=== PATIENT | female | born 1980 | race Caucasian/White ===

== ENCOUNTER 2016-08-12 12:36 | Emergency (ER) | payer SELFPAY ==
[2016-08-12 12:45] VITALS: BP 118/75; PULSE 92; RESP 16; TEMP 99; O2SAT 96
--- NOTE | 2016-08-12 13:01 | EDPHY ---
H & P Time Seen by Provider: 08/12/16 12:57 HPI/ROS: Mental health issues. Asking for medication prescription refills. 36-year-old female on foot. This patient recently moved from [place]. She has a history of paranoid schizophrenia, bipolar, anxiety and attention deficit hyperactivity disorder. She reports that she is prescribed trazodone in an unknown dosage, and hydralazine, which she describes as a blue and white capsule for psychiatric medications. She reports that she has 1-2 days of medications left but needs refills on her prescriptions. She denies any other complaints. She reports that she is here to go to [employer] school. However, she told the nursing staff that she was here for a job interview. She denies being significantly depressed. No homicidal or suicidal ideations. ROS: Constitutional: No fever, no chills. No weakness. Eyes: No discharge. No changes in vision. ENT: No sore throat. No nasal congestion or rhinorrhea. Respiratory: No cough. No shortness of breath. Cardiac: No chest pain, no palpitations. Gastrointestinal: No abdominal pain, no vomiting, no diarrhea. Genitourinary: No hematuria. No dysuria or increased frequency with urination. Musculoskeletal: No back pain. No neck pain. No myalgias or arthralgias. Skin: No rashes. Neurological: No headache. No focal weakness or altered sensation. Past medical history: Paranoid schizophrenia, anxiety, bipolar, attention deficit hyperactivity disorder. Social history: Every day smoker. Denies alcohol. Physical Exam: General Appearance: Alert, happy, animated. This patient is responding to questions appropriately and in full sentences. This patient appears well- hydrated and well-nourished. Eyes: Pupils equal and round no pallor or injection. No lid edema, erythema or injection. Neurological: Motor sensory function is grossly intact. Cranial nerves are normal. Gait is normal. Skin: Warm and dry, no rashes. Musculoskeletal: Neck is supple and nontender. Extremities are symmetrical. All joints range without pain or impingement. Psychiatric: No agitation. No depression. Database: EKG: Imaging: Procedures: Emergency department course: After my evaluation, I agreed to provide her with a limited prescription refill of her psychiatric meds which will include trazodone, Geodon and hydroxyzine. We will have [facility] briefly consult with her and arrange for follow-up in their clinic this week. She is in agreement with this plan. [facility] has seen the patient. They arranged for follow-up in clinic this week. They will take over her psychiatric prescription medication refills and ongoing management of her psychiatric issues. The patient feels comfortable being discharged. She understands her follow-up. Return to emergency department precautions discussed. All of her questions were answered. She was discharged in good condition. Differential Diagnosis: The differential diagnosis on this patient includes but is not limited to out of psychiatric medications, history of paranoid schizophrenia, anxiety, bipolar , attention deficit hyperactivity disorder. This represents a partial list of diagnoses considered. These considerations are based on history, physical exam , past history, reassessment and diagnostic testing. Smoking Status: Current every day smoker Constitutional: Initial Vital Signs Temperature (C) 37.2 C 08/12/16 12:41 Heart Rate 92 08/12/16 12:41 Respiratory Rate 16 08/12/16 12:41 Blood Pressure 118/75 08/12/16 12:41 O2 Sat (%) 96 08/12/16 12:41 O2 Delivery Mode Room Air Allergies/Adverse Reactions: No Known Allergies Allergy (Unverified 08/12/16 12:45) Home Medications: Medication Instructions Recorded Blue And White Capsule 08/12/16 Hydroxyzine HCl 08/12/16 Ziprasidone HCl [Geodon] 80 mg PO BID #20 capsule 08/12/16 hydrOXYzine HCL [hydrOXYzine HCL 25 mg PO Q8 PRN #20 tab 08/12/16 (RX)] traZODone 08/12/16 traZODone [traZODONE 50MG (*)] 50 mg PO TID #20 tab 08/12/16 Medical Decision Making - Data Points Laboratory Results: 08/12/16 13:00 WBC Pending RBC Pending Hgb Pending Hct Pending MCV Pending MCH Pending MCHC Pending RDW Pending Plt Count Pending MPV Pending Neut % (Auto) Pending Lymph % (Auto) Pending [place] % (Auto) Pending Eos % (Auto) Pending Baso % (Auto) Pending Nucleat RBC Rel Count Pending Absolute Neuts (auto) Pending Absolute Lymphs (auto) Pending Absolute Monos (auto) Pending Absolute Eos (auto) Pending Absolute Basos (auto) Pending Absolute Nucleated RBC Pending Immature Gran % Pending Immature Gran # Pending Sodium Pending Potassium Pending Chloride Pending Carbon Dioxide Pending Anion Gap Pending BUN Pending Creatinine Pending Estimated GFR Pending Glucose Pending Calcium Pending Ethyl Alcohol Pending Departure - Departure Disposition: Home, Routine, Self-Care Clinical Impression: PRESCRIPTION MEDICATION REFILL, History of schizophrenia Condition: Good Instructions: Schizophrenia (ED) Additional Instructions: Read and follow provided instructions. Follow-up with [facility] in clinic as discussed for continued and ongoing psychiatric management as well as refill of your prescription medications. Take medication as prescribed only. Return to the emergency department for worsening symptoms or other serious concerns. Referrals: [facility] [Outside] - As per Instructions Prescriptions: Ziprasidone HCl [Geodon] 80 mg PO BID #20 capsule hydrOXYzine HCL [hydrOXYzine HCL (RX)] 25 mg PO Q8 PRN #20 tab PRN Reason: Anxiety traZODone [traZODONE 50MG (*)] 50 mg PO TID #20 tab
[2016-08-12 13:19] LABS: % IMMATURE GRANULYOCYTES 0.4 % (0.0-1.1); ABSOLUTE IMMATURE GRANULOCYTES 0.04 10^3/uL (0.00-0.10); ADD DIFF? NO; ADD MORPH? NO; ADD SCAN? NO; ATYPICAL LYMPHOCYTE FLAG 10 (0-99); FRAGMENT RBC FLAG 0 (0-99); HEMATOCRIT 42.8 % (38.0-47.0); HEMOGLOBIN 14.4 g/dL (12.6-16.3); LEFT SHIFT FLG 0 (0-99); LIPEMIA HEMOLYSIS FLAG 80 (0-99); MEAN CELL HEMOGLOBIN 30.4 pg (27.9-34.1); MEAN CELL HEMOGLOBIN CONCENTR. 33.6 g/dL (32.4-36.7); MEAN CELL VOLUME 90.5 fL (81.5-99.8); MEAN PLATELET VOLUME 10.9 fL (8.7-11.7); PLATELET CLUMPS FLAG 0 (0-99); PLATELET COUNT 328 10^3/uL (150-400); RED BLOOD CELL COUNT 4.73 10^6/uL (4.18-5.33); RED CELL DISTRIBUTION WIDTH 13.8 % (11.5-15.2)
[2016-08-12 13:38] LABS: ANION GAP 13 mEq/L (8-16); CALCIUM 9.8 mg/dL (8.5-10.4); CARBON DIOXIDE 26 mEq/l (22-31); CHLORIDE 104 mEq/L (97-110); CREATININE 0.7 mg/dL (0.6-1.0); ETHANOL SERUM < 10 mg/dL (0-10); GLOMERULAR FILTRATION RATE > 60; GLUCOSE 86 mg/dL (70-100); POTASSIUM 4.4 mEq/L (3.5-5.2); SODIUM 143 mEq/L (134-144)
== END 2016-08-12 13:31 | disposition home or self-care (01) ==
DX: Z76.0 Encounter for issue of repeat prescription (principal); F17.200 Nicotine dependence, unspecified, uncomplicated; Z86.59 Personal history of other mental and behavioral disorders
CPT/HCPCS: G0480

== ENCOUNTER 2016-09-02 22:24 | Emergency (ER) | payer MEDICAID ==
[2016-09-02] MEDS ORDERED: OLANZapine 2.5 MG TAB PO ONE (23:01)
--- NOTE | 2016-09-02 23:03 | EDPHY ---
H & P Stated Complaint: PSYCH ISSUE Source: Patient Exam Limitations: No limitations - Personal History LMP (Females 10-55): Post Menopausal Current Tetanus/Diphtheria Vaccine: Yes - Medical/Surgical History Hx Asthma: No Hx Chronic Respiratory Disease: No Hx Diabetes: No Hx Cardiac Disease: No Hx Renal Disease: No Hx Cirrhosis: No Hx Alcoholism: No Hx HIV/AIDS: No Hx Splenectomy or Spleen Trauma: No Other PMH: PARANOID SCHIZOPHRENIC, ADHD, ANXIETY, BIPOLAR - Family History Significant Family History: No pertinent family hx - Social History Smoking Status: Current every day smoker Alcohol Use: Other (Unknown) Drug Use: Other (Unknown) Time Seen by Provider: 09/02/16 23:34 HPI/ROS: HPI: 36-year-old female brought in to emergency department by PD on M1 hold with chief concern hallucinations. Patient reports she is hearing voices were telling her to kill herself and kill everyone else. She will not answer questions regarding whether she is taking her prescribed medication. HPI limited as patient is agitated, psychotic, and unable to answer questions. ROS: Unable to obtain (Sona Corcoran) - Social History Additional Social History: Has a daughter, lives in [place] (Sona Corcoran) - Physical Exam Exam: Vital signs stable General: Awake, very agitated.. Head: Normalocephalic. Atraumatic. EENT: PERRLA. EOMI. No pallor or injection. Anicteric. No nystagmus. Neck: Supple, nontender. No lymphadenopathy. Full range of motion. Respiratory: Breathing unlabored. Breath sounds equal bilaterally and clear to auscultation. No adventitious sounds. CV: Chest nontender, atraumatic. Heart rate regular. No murmur. GI: Abdomen soft, nontender. Bowel sounds normoactive and positive x 4 quadrants. Neuro: Alert. Oriented to person only. Skin: Skin warm, dry, intact. No rashes, abrasions, or lacerations. Skin turgor normal. Extremities: Moves all extremities Mental status: Agitated, disheveled (Sona Corcoran) Constitutional: Initial Vital Signs Temperature (C) 36.5 C 09/02/16 22:33 Heart Rate 103 H 09/02/16 22:33 Respiratory Rate 18 09/02/16 22:33 Blood Pressure 145/89 H 09/02/16 22:33 O2 Sat (%) 97 09/02/16 22:33 O2 Delivery Mode Room Air Allergies/Adverse Reactions: No Known Allergies Allergy (Verified 09/02/16 22:43) Home Medications: Medication Instructions Recorded Blue And White Capsule 08/12/16 Hydroxyzine HCl 08/12/16 Ziprasidone HCl [Geodon] 80 mg PO BID #20 capsule 08/12/16 hydrOXYzine HCL [hydrOXYzine HCL 25 mg PO Q8 PRN #20 tab 08/12/16 (RX)] traZODone 08/12/16 traZODone [traZODONE 50MG (*)] 50 mg PO TID #20 tab 08/12/16 Medical Decision Making ED Course/Re-evaluation: 2335: 36-year-old female with known paranoid schizophrenia, bipolar, attention deficit hyperactivity disorder, anxiety brought in to ED by PD on M1 hold for hallucinations. Given 10 mg IM Zyprexa for profound agitation and psychosis. Currently attempting to obtain labs and urine. (Sona Corcoran) 8:45 p.m.. Patient has been evaluated by mental health and they feel that they would like to place her in a crisis stabilization unit for further evaluation and treatment (Faheem Jones) 0700: Patient signed over to Dr. Block at 7:00 a.m. shift change. Patient is pending mental health evaluation and urinalysis. Patient acutely psychotic will need mental health placement. 0618AM 09/04/16: No acute events overnight. Patient signed over to Dr. Block at 7:00 a.m. shift change. (Adal Inman) I assumed care of the patient at 3pm from Dr. Block pending psychiatric evaluation. Update at 8:20 p.m.. The patient was evaluated by [facility]. The case was discussed with the on-call psychiatrist for [facility] Dr. Cesar. At this point time the patient contracts for safety. Dr. Cesar has recommended that the mental health hold the vacated and the patient follow-up with the walk-in center. The patient has been discharged home with customary aftercare instructions. (Reji Varghese) Differential Diagnosis: Differential includes but is not limited to paranoid schizophrenia, illicit drug use, noncompliance with medication, medication side-effect, anxiety, schizophrenia, bipolar, drug or alcohol related, acute psychosis, metabolic derangement, infection (Sona Corcoran) Differential diagnosis considered includes schizophrenia, depression, psychosis , suicidal ideation, anxiety (Reji Varghese) Other Provider: 7:30 a.m. the patient's care is transferred to [place]. She is standing in the hallway and padding the wall and asking for her home doses of Geodon Ativan. Her urinalysis is positive for amphetamines, cocaine, marijuana and benzodiazepines. She has not yet been evaluated. She is on a hold. 3:00 p.m. care transferred to Dr. Faheem Jones. The patient's methamphetamine toxicology was positive so they are waiting for 12 hours before evaluating her. She is currently calm and cooperative after receiving her home doses of Geodon and Ativan. Patient's care is transferred back to [place] at 7:00 a.m. on September 03. She is currently sleeping. She has been evaluated and we are awaiting placement. 3:00 p.m. patient has been without complaints throughout the day. We continue to await placement. She is on a hold. Care transferred to Dr. Reji Varghese. (Luis F Block) Care Turn Over: Dr. Koroma at 2300 (Faheem Jones) - Data Points Laboratory Results: Laboratory Results 09/02/16 23:50 09/02/16 23:50 Medications Given: Discontinued Medications Alprazolam (Xanax) 2 mg PO EDNOW ONE Stop: 09/04/16 19:16 Last Admin: 09/04/16 19:33 Dose: 2 mg Hydroxyzine HCl (Hydroxyzine Hcl) 25 mg PO EDNOW ONE Stop: 09/03/16 08:33 Last Admin: 09/03/16 08:44 Dose: 25 mg Hydroxyzine HCl (Hydroxyzine Hcl) 25 mg PO ONCE ONE Stop: 09/03/16 21:04 Last Admin: 09/03/16 21:42 Dose: 25 mg Lorazepam (Ativan Injection) 2 mg IVP EDNOW ONE Stop: 09/02/16 23:51 Last Admin: 09/02/16 23:56 Dose: Not Given Lorazepam (Ativan) 2 mg PO EDNOW ONE Stop: 09/02/16 23:54 Last Admin: 09/02/16 23:53 Dose: 2 mg Lorazepam (Ativan) 2 mg PO ONCE ONE Stop: 09/03/16 07:43 Last Admin: 09/03/16 07:49 Dose: 2 mg Lorazepam (Ativan) 2 mg PO EDNOW ONE Stop: 09/03/16 21:01 Last Admin: 09/03/16 21:30 Dose: 2 mg Nicotine (Nicoderm Cq) 21 mg TD EDNOW ONE Stop: 09/04/16 16:08 Last Admin: 09/04/16 17:17 Dose: 21 mg Olanzapine (Zyprexa) 10 mg PO ONCE ONE Stop: 09/02/16 23:02 Last Admin: 09/02/16 23:21 Dose: 10 mg Ziprasidone (Geodon) 10 mg IM ONCE ONE Stop: 09/03/16 00:30 Last Admin: 09/03/16 00:42 Dose: 10 mg Departure - Departure Disposition: Home, Routine, Self-Care Clinical Impression: Paranoid schizophrenia, Hallucinations, Agitation Condition: Fair Instructions: Schizophrenia (ED) Additional Instructions: 1. Please follow-up with the mental health resources provided in the ED today. 2. [facility] does operate a 24/ psychiatric crisis unit located at [address] [place] [address]. The telephone number for the 24 hour crisis center is [phone]. 3. Please return to the ED if you are feeling suicidal, having thoughts of harming yourself/others or should you feel unsafe or have worsening symptoms. Referrals: [facility] [Outside] - As per Instructions
[2016-09-02] MEDS ORDERED: LORazepam 2 MG/ML INJ IVP ONE (23:50)
[2016-09-02] MEDS ORDERED: LORazepam 1 MG TAB ONE (23:51)
[2016-09-02] MEDS ORDERED: LORazepam 1 MG TAB PO ONE (23:53)
[2016-09-03 00:02] VITALS: RESP 16
[2016-09-03 00:05] LABS: % IMMATURE GRANULYOCYTES 0.7 % (0.0-1.1); ABSOLUTE IMMATURE GRANULOCYTES 0.09 10^3/uL (0.00-0.10); ADD DIFF? NO; ADD MORPH? NO; ADD SCAN? NO; ATYPICAL LYMPHOCYTE FLAG 10 (0-99); FRAGMENT RBC FLAG 10 (0-99); HEMATOCRIT 41.6 % (38.0-47.0); HEMOGLOBIN 14.2 g/dL (12.6-16.3); LEFT SHIFT FLG 0 (0-99); LIPEMIA HEMOLYSIS FLAG 90 (0-99); MEAN CELL HEMOGLOBIN 30.6 pg (27.9-34.1); MEAN CELL HEMOGLOBIN CONCENTR. 34.1 g/dL (32.4-36.7); MEAN CELL VOLUME 89.7 fL (81.5-99.8); MEAN PLATELET VOLUME 10.4 fL (8.7-11.7); PLATELET CLUMPS FLAG 10 (0-99); PLATELET COUNT 409 10^3/uL (150-400); RED BLOOD CELL COUNT 4.64 10^6/uL (4.18-5.33); RED CELL DISTRIBUTION WIDTH 13.8 % (11.5-15.2)
[2016-09-03 00:15] LABS: ANION GAP 16 mEq/L (8-16); CALCIUM 10.5 mg/dL (8.5-10.4); CARBON DIOXIDE 23 mEq/l (22-31); CHLORIDE 106 mEq/L (97-110); CREATININE 0.7 mg/dL (0.6-1.0); ETHANOL SERUM < 10 mg/dL (0-10); GLOMERULAR FILTRATION RATE > 60; GLUCOSE 112 mg/dL (70-100); POTASSIUM 5.2 mEq/L (3.5-5.2); SODIUM 145 mEq/L (134-144)
[2016-09-03] MEDS ORDERED: ZIPRASIDONE MESYLATE 20 MG VIAL IM ONE (00:29)
[2016-09-03] MEDS ORDERED: LORazepam 1 MG TAB PO ONE ×2 (07:42→21:00)
[2016-09-03] MEDS ORDERED: hydrOXYzine HCL 25 MG TAB PO ONE ×2 (08:32→21:03)
[2016-09-03] MEDS: ZIPRASIDONE HCL 40 MG CAP PO SCH ×2 (08:44→21:43)
[2016-09-04 07:43] VITALS: TEMP 98.4; O2SAT 96
[2016-09-04] MEDS: ZIPRASIDONE HCL 40 MG CAP PO SCH ×2 (08:25→19:00)
[2016-09-04] MEDS ORDERED: NICOTINE 21 MG/24 HR PATCH TD ONE (16:07)
[2016-09-04 17:15] VITALS: BP 116/74; PULSE 78
[2016-09-04] MEDS ORDERED: ALPRAZolam 1 MG TAB PO ONE (19:15)
[2016-09-04] MEDS ORDERED: hydrOXYzine HCL 25 MG TAB PO ONE (19:15)
== END 2016-09-04 21:15 | disposition home or self-care (01) ==
DX: F20.0 Paranoid schizophrenia (principal); F17.200 Nicotine dependence, unspecified, uncomplicated
CPT/HCPCS: 80305; G0480; J3486